=== PATIENT | male | born 1965 | race Caucasian/White ===

== ENCOUNTER 2019-06-20 16:45 | Emergency (ER) | payer MEDICAID ==
[~2019-06-20] VITALS: Ht 165.1 cm; Wt 94.3 kg
[2019-06-20 17:01] VITALS: Ht 165.1 cm; Wt 94.3 kg
[2019-06-20 18:08] LABS: BASOPHIL % 0.6 % (0-2); PLATELET COUNT 365 x10^3mcL (130-400); RED CELL DISTRIBUTION WIDTH 14.1 % (11.5-14.5)
[2019-06-20 18:32] LABS: CALCIUM 8.3 mg/dL (8.5-10.1); CARBON DIOXIDE 28.4 mmol/L (21-32); CHLORIDE SERUM 101 mmol/L (98-107); GFR1 > 60 mL/min; GLUCOSE SERUM 140 mg/dL (74-106); POTASSIUM SERUM 3.6 mmol/L (3.5-5.1); SODIUM SERUM 139 mmol/L (136-145)
[2019-06-20 18:36] LABS: ALBUMIN 3.7 g/dL (3.4-5.0); ALKALINE PHOSPHATASE 95 U/L (46-116); ALT/SGPT 44 U/L (16-63); AST/SGOT 20 U/L (15-37); BILIRUBIN TOTAL 0.2 mg/dL (0.20-1.00); C REACTIVE PROTEIN 0.4 mg/dL (<=0.9); TOTAL PROTEIN, SERUM 8.2 g/dL (6.4-8.2)
[2019-06-20 19:21] LABS: ERYTHROCYTE SED RATE 22 mm/hr (0-20)
[2019-06-20 21:01] VITALS: BP 137/73
== END 2019-06-20 21:01 | disposition short-term general hospital (02) ==
LOC: ED 16:45
PROVIDERS: Emergency Medicine
DX: R51 Headache (principal)
CPT/HCPCS: 36415